=== PATIENT | female | born 1970 | race Caucasian/White ===

== ENCOUNTER → 2023-10-15 14:48 | Outpatient (REF) | payer OTHER, SELFPAY | LOC: DHCBS MAIN 14:48 | PROVIDERS: ATTENDING PHYSICIAN Internal Medicine Interventional Cardiology; FAMILY PHYSICIAN Nurse Practitioner Family | DX: E78.00 Pure hypercholesterolemia, unspecified (principal); I10 Essential (primary) hypertension; Z82.49 Family history of ischemic heart disease and other diseases of the circulatory system | CPT/HCPCS: 93306 ==

== ENCOUNTER → 2023-10-24 16:06 | Outpatient (REF) | payer OTHER, SELFPAY | LOC: WDC 16:06 | PROVIDERS: ATTENDING PHYSICIAN Nurse Practitioner Family | DX: Z12.31 Encounter for screening mammogram for malignant neoplasm of breast (principal) | CPT/HCPCS: 77063; 77067 ==

== ENCOUNTER → 2023-11-01 13:16 | Outpatient (REF) | payer OTHER, SELFPAY | LOC: RCS 13:16 | PROVIDERS: ATTENDING PHYSICIAN Internal Medicine Interventional Cardiology; FAMILY PHYSICIAN Nurse Practitioner Family | DX: I10 Essential (primary) hypertension (principal); R06.09 Other forms of dyspnea | CPT/HCPCS: 93017 ==

== ENCOUNTER → 2024-12-16 18:08 | Outpatient (REF) | payer OTHER, SELFPAY | LOC: WDC 18:08 | PROVIDERS: ATTENDING PHYSICIAN Nurse Practitioner Family | DX: Z12.31 Encounter for screening mammogram for malignant neoplasm of breast (principal) | CPT/HCPCS: 77063; 77067 ==

== ENCOUNTER 2025-06-02 19:48 | Emergency (ER) | payer OTHER, SELFPAY ==
[2025-06-02 19:51] VITALS: BP 164/108
[2025-06-02 20:24] LABS: Hematocrit 39.3 % (37.0-47.0); Hemoglobin 13.1 g/dL (12.0-16.0); Mean Corp Hgb Conc. 33.3 g/dL (33.0-37.0); Mean Corpuscular Volume 80.5 fL (81.0-99.0); Nucleated Red Blood Cells % 0 %; Platelet Count 247 10^3/uL (130-400); Red Cell Dist. Width 13.9 % (11.5-14.5)
[2025-06-02 20:44] LABS: ALT (SGPT) 17 U/L (0-35); AST (SGOT) 22 U/L (14-36); Albumin 4.4 g/dl (3.5-5.0); Alkaline Phosphatase 53 U/L (38-126); Blood Urea Nitrogen 21 mg/dl (7-17); Calcium 9.6 mg/dl (8.4-10.2); Carbon Dioxide 28 mmol/L (22-30); Chloride 105 mmol/L (98-107); Glucose 93 mg/dl (70-99); Potassium 4.0 mmol/L (3.5-5.1); Sodium 139 mmol/L (135-145); Total Protein 7.3 g/dl (6.3-8.2); eGFR > 60.00
[2025-06-02 20:54] LABS: Troponin I < 0.012 ng/ml
[2025-06-02 21:31] VITALS: BP 159/86
[2025-06-02 22:00] VITALS: BP 142/76
[2025-06-02 23:00] VITALS: BP 135/83
[2025-06-02 23:24] LABS: Troponin I < 0.012 ng/ml
[2025-06-03] VITALS: BP 136/93
--- NOTE | 2025-06-03 00:07 | ED.GENMED ---
History of Present Illness
General
Chief Complaint: Chest Pain
Source: patient
Exam Limitations: none
Time Seen by Provider: 06/02/25 21:23
Nursing documentation reviewed up to this point in time: agreed with
History of Present Illness
History of Present Illness:
55-year-old female presenting to the emergency department today with concerns of palpitations last night and some vague chest discomfort throughout the day today no ongoing pain here upon arrival. Denies nausea vomiting or diaphoresis. No recent
history of trauma surgery mobilization.
Past History
Past History
ED Past Medical History: Cancer
ED Past Surgical History: Other
Social History
Tobacco: Non-smoker
Alcohol: Occasional
Drug: None
Personal:
Living: with family
Employment: Employed
Family History
Family History: Other
Review of Systems
Review of Systems
Allergies reviewed?: Yes
All Other Systems: ROS reviewed and negative except as documented in HPI and ROS
Phy Exam
Physical Exam
Physical Exam:
GENERAL: Alert , in no apparent distress
EYE: pupils equal and reactive
NECK: Supple, no significant adenopathy.
ENT: o/p clr, mmm.
CARDIAC: Regular rate and rhythm .
LUNGS: Clear breath sounds bilaterally, no acute respiratory distress, no wheezes/rales/rhonchi
ABDOMEN: Soft, without focal tenderness, no r/g, no cvat
NEUROLOGICAL: Alert and oriented, no focal neuro deficits
SKIN: Warm and dry, skin intact.
MUSCULOSKELETAL: No edema, well perfused.
PSYCH: Normal and appropriate interaction.
Scores
Heart Score for Chest Pain Patients
STEMI patient?: No
History: Slightly or Non-Suspicious
ECG: Normal
Age: >45 - <65 years
Risk Factors: No Risk Factors
Troponin: </= Normal Limit
Heart Score for Chest Pain Patients: 1
Heart Score Risk: 2.5% MACE over next 6 weeks
Course
Orders/Labs/Results
Orders:
Orders
06/02/25 19:53
Electrocardiogram (*1) Urgent
Reason for Study: Palpitations
EKG- Treatment ONCE
06/02/25 20:09
Complete Blood Count/With Diff Urgent
Comprehensive Metabolic Panel Urgent
Troponin I Urgent
06/02/25 21:52
Chest [CR Chest - 2 Views ] Urgent
Comment:
Reason For Exam: cp left sided
06/02/25 22:46
Electrocardiogram (*1) Urgent
Reason for Study: Chest Pain
EKG- Treatment ONCE
06/02/25 22:54
Troponin I Urgent
Abnormal Lab Results
06/02/25
20:09
MCV 80.5 L fL
(81.0-99.0)
MCH 26.8 L pg
(27.0-31.0)
BUN 21 H mg/dl
(7-17)
06/02/25 20:09
06/02/25 20:09
Vital Signs
Initial and Last Documented VS:
Initial Vital Signs
Temp Pulse Resp BP Pulse Ox
98.2 F 87 20 164/108 99
06/02/25 19:51 06/02/25 19:51 06/02/25 19:51 06/02/25 19:51 06/02/25 19:51
Last Documented Vital Signs
Temp Pulse Resp BP Pulse Ox
98.2 F 66 16 135/83 98
06/02/25 19:51 06/02/25 23:00 06/02/25 23:00 06/02/25 23:00 06/02/25 23:00
MDM/Problems Addressed
MDM/Problems Addressed:
55-year-old female presenting to the emergency department today with concerns left-sided chest pain associated palpitations shortness of breath. Here symptoms are resolved initial blood pressure elevated but improving without specific treatment.
Labs unremarkable troponin negative EKG without emergent findings chest x-ray normal. Troponin and EKG repeated with no acute abnormalities. ACS very unlikely at this point. Stable for discharge advised for close cardiology follow-up. Return
precautions given.
*Pulse Oximetry
SaO2: 98
Oxygen Mode of Delivery: Room air
Patient hypoxic: no (98)
*Critical Care Note
Total Time (30-74mins, 75-104mins- exclusive of procedures): Not Applicable
ED Attending Note
-
Portions of this chart may have been created with voice recognition software.� Occasional wrong word or��sound alike� substitutions may have occurred due to the inherent limitations of voice recognition software.
Discharge Plan
Departure
Patient Disposition: Home (Routine Discharge)
Date of Disposition: 06/03/25
Time of Disposition: 00:09
Patient with high blood pressure during this ER visit?: No
Condition: Good
Covid-19: Not Applicable
Discharge Problem:
Chest pain
Instructions: Chest Pain DCA Follow Up
Prescriptions:
No Action
bupropion HCl [Wellbutrin SR] 150 mg Tablet Sustained-Release 12 Hr
150 mg PO DAILY
lisinopril 5 mg Tablet
5 mg PO DAILY
Referrals:
Adelina Sims CRNP [Family Provider, Internal Medicine]
Activity Restrictions/Additional Instructions:
You came to the emergency department today with concerns of palpitations and chest pain. Here your reassuring assessment. Please follow closely with cardiology. Return for any worsening, new or concerning symptoms.
Interventions
Interventions:
*Risk Screen - Suicide Last Done: 06/02/25 19:53
*General Assessment Last Done: 06/02/25 19:53
*Neglect/Abuse Screening Last Done: 06/02/25 19:53
*ED COVID-19 Vaccine History Last Done: 06/02/25 19:53
*ED Influenza Vaccine History Last Done: 06/02/25 19:53
ED- Cardiac Assessment Last Done: 06/02/25 21:33
Discharge Date and Time
Print Language: HUNGARIAN
== END 2025-06-03 00:27 | disposition home or self-care (01) ==
LOC: EMR 19:48
PROVIDERS: Emergency Medicine; Physician Assistant; EMERGENCY PHYSICIAN Emergency Medicine; FAMILY PHYSICIAN Nurse Practitioner Family
DX: R07.9 Chest pain, unspecified (principal)
CPT/HCPCS: 99284; 71046; 80053; 84484; 85025; 93005